=== PATIENT | female | born 1960 | race Caucasian/White ===

== ENCOUNTER 2017-10-15 00:22 | Inpatient (IN) ==
[2017-10-15] MEDS ORDERED: OXYCODONE Oral CONC 10 MG/0.5 ML ORAL.SYG SL PRN (04:56)
[2017-10-15] MEDS ORDERED: Naloxone 0.4 MG/ML INJ IVP PRN (04:56)
[2017-10-15] MEDS ORDERED: 0.9 % Sodium Chloride 1,000 ML IVC ONE (05:01)
[2017-10-15] MEDS: *HR* Heparin 5,000 UNIT/ML VIAL SQ SCH ×2 (05:16→17:54)
[2017-10-15 05:27] LABS: Hematocrit 33.8 % (35.3-44.9); Hemoglobin 11.4 g/dL (11.5-15.4); Mean Corpuscular HGB Conc 33.7 g/dL (31.6-35.5); Mean Corpuscular Hemoglobin 28.6 pg (28.0-33.3); Mean Corpuscular Volume 84.9 fL (83.0-100.0); Mean Platelet Volume 9.2 fL (9.4-12.4); Platelet Count 398 K/mcL (140-400); Red Blood Count 3.98 M/mcL (3.82-4.97); Red Cell Distribution Width 13.5 % (11.5-14.5)
[2017-10-15 05:45] LABS: BUN/Creatinine Ratio 16 (6-26); Blood Urea Nitrogen 8 mg/dL (6-20); Calcium 9.2 mg/dL (8.6-10.3); Carbon Dioxide 24 mEq/L (23-29); Chloride 106 mEq/L (98-107); Glucose 126 mg/dL (70-105); Osmolality,Calculated 284 (280-300); Potassium 3.6 mEq/L (3.5-5.1); Sodium 137 mEq/L (136-145); eGFR For African Americans > 60 (> 60); eGFR For Non-African Americans > 60 (> 60)
--- NOTE | 2017-10-15 06:20 | Internal Med History&Physical ---
Date of Encounter: 10/15/17 Time of Encounter: 03:30 Internal Medicine - H&P: HPI Chief complaint: Small Bowel Obstruction Admitted From: Home Plans for Post Hospital Care: Home History of present illness: Ms. Ardon is a 57 year old female Patient states that she had a laproscopic umbilical hernia repair on 10/03. Was recovering well, with no issues until about 2 days ago when she began vomiting and had abdominal pain 9 out of 10 at home. Her pain is localized to the lower abdomen she had never had anything quite like that before. She came to the [facility] emergency room where a CT exam was performed. It showed proximal small bowel obstruction with transition point suspected in mid to lower abdomen. Loops of small bowel 4 cm in caliber were noted as well. NG tube was placed and several 100 mL of fluid was removed. She was given 1 L of normal saline, and promethazine 25 mg and patient was feeling much better at that point. She was transferred to [facility] where she had the initial procedure for further management. She denies chest pain, fever, change in bowel movements and other pain. Currently she is doing much better and her abdominal pain has nearly resolved. She cooling pan tender but able to sleep now. She no longer has any nausea. Past Med Surg Social Fam HX - Past Medical History Medical history: COPD, GERD, hypertension, other Additional medical history: colon polyp. Hypothyroid. tobacco abuse. IBS. tobacco abuse counseling - STARTED SMOKING @24 YRS OF AGE. morbid obesity with BMI Psychiatric history: no psych history - Past Surgical History Surgical History: herniorrhaphy, other Additional surgical history: c section. left knee scope. colonoscopy. hyperplastic polyp. hysterectomy. oophorectomy. right carpal tunnel release. colonoscopy. 10/03/17 LAP UMB HERNIA REPAIR @[facility] W/DR MOLINA - Social History Smoking Status: Current every day smoker Packs per day: 0.5 Smokeless Tobacco Status: No Alcohol use: none Drug use: none - Family History Mother Hx Family Cardiac Disorders: Yes Internal Medicine - H&P: Meds Albuterol Neb [Proventil Neb] 1.25 mg IH Q4H PRN 04/13/15 [History] Albuterol Sulfate [Proventil Hfa] 2 puff IH Q6HR PRN 04/13/15 [History] Ibuprofen [Motrin] 800 mg PO TID PRN 04/13/15 [History] Levothyroxine [Synthroid] 75 mcg PO DAILY 04/13/15 [History] Loratadine [Claritin] 10 mg PO DAILY 04/13/15 [History] Omeprazole [PriLOSEC] 20 mg PO BID 04/13/15 [History] Quinapril HCl [Accupril] 40 mg PO DAILY 04/13/15 [History] Sertraline [Zoloft] 200 mg PO DAILY 04/13/15 [History] Tiotropium [Spiriva] 18 mcg IH HS 04/13/15 [History] hydrOXYzine HCl [Hydroxyzine HCl] 25 mg PO TID PRN 04/13/15 [History] Fluticasone Propionate Nasal [Flonase] 2 spr NS DAILY PRN 08/03/16 [History] Cholecalciferol (Vitamin D3) [Vitamin D] 5,000 unit PO DAILY 10/03/17 [History] 3 Allergy/AdvReac Type Severity Reaction Status Date / Time naproxen Allergy Hives Verified 09/29/17 16:29 feathers AdvReac Sneezing Verified 09/29/17 16:29 All Systems PM: A 10-system review of systems was performed and is negative for pertinent findings except as documented above in the HPI. - Constitutional Vitals: Temp Pulse Resp BP Pulse Ox 100.0 F H 79 16 122/73 94 10/15/17 04:13 10/15/17 04:13 10/15/17 04:13 10/15/17 04:13 10/15/17 04:13 General appearance: Present: A&O X 3, pleasant, no acute distress, obese - Eye Eye exam: Present: EOMI, normal appearance - Respiratory Respiratory exam: Present: CTAB. Absent: rales, respiratory distress, wheezes - Cardiovascular Cardiovascular exam: Present: RRR. Absent: diastolic murmur, systolic murmur - GI/Abdominal GI/Abdominal exam: Present: diminished bowel sounds, hypoactive bowel sounds, soft, tenderness. Absent: guarding Additional comments: Lower abdomen tenderness - Extremities Exam Extremities exam: Present: warm, radial pulses palpable and symmetrical. Absent : calf tenderness, pedal edema, tenderness - Neurological Exam Neurological exam: Present: oriented X3, no focal deficits, strengths equal and symetr throughout. Absent: facial droop, speech deficit - Skin Skin exam: Present: normal color, warm. Absent: rash Internal Med - H&P Results - Labs CBC & Chem 7: 10/15/17 05:14 10/15/17 05:14 Labs: Short CBC 10/15/17 Range/Units 05:14 WBC 9.3 (4.3-11.1) K/mcL Hgb 11.4 L (11.5-15.4) g/dL Hct 33.8 L (35.3-44.9) % Plt Count 398 (140-400) K/mcL BMP 10/15/17 05:14 Sodium 137 Potassium 3.6 Chloride 106 Carbon Dioxide 24 BUN 8 Creatinine 0.49 L Glucose 126 H Calcium 9.2 - Assessment and plan (1) Small bowel obstruction Current Visit: Yes Status: Acute Assessment and plan: Patient presented with small bowel obstruction after a hernia repair surgery on October 03. She is now much improved after NG tube placement and antinausea medication. Small bowel obstruction could be related to her recent surgery, she has never had this problem before. Continue NG tube to wall suction Continue antinausea medication as needed Advance diet as tolerated when patient no longer experiencing discomfort. Consider repeat CT to identify evidence of small bowel obstruction and transition point Surgery consult if needed (2) Abdominal pain Current Visit: Yes Status: Acute Assessment and plan: Likely secondary to small bowel obstruction, now much improved after NG tube placement. Continue to monitor. Qualifiers: Qualified Code(s): R10.30 - Lower abdominal pain, unspecified (3) Nausea and vomiting Current Visit: Yes Status: Acute Assessment and plan: Much improved after NG tube placement, likely secondary to her small bowel obstruction Continue when necessary antinausea medication. Qualifiers: Qualified Code(s): R11.2 - Nausea with vomiting, unspecified (4) Hypothyroidism Current Visit: Yes Status: Acute Assessment and plan: Patient currently nothing by mouth Continue home meds at discharge. Qualifiers: Qualified Code(s): E03.9 - Hypothyroidism, unspecified (5) GERD (gastroesophageal reflux disease) Current Visit: Yes Status: Acute Assessment and plan: Patient currently nothing by mouth Continue home meds at discharge. Qualifiers: Qualified Code(s): K21.9 - Gastro-esophageal reflux disease without esophagitis (6) Depression Current Visit: Yes Status: Acute Assessment and plan: Patient currently nothing by mouth Continue home meds at discharge. Qualifiers: Qualified Code(s): F32.9 - Major depressive disorder, single episode, unspecified (7) Hypertension Current Visit: Yes Status: Acute Assessment and plan: Patient currently nothing by mouth, stable vital signs thus far. Continue to monitor. Continue home meds at discharge. Qualifiers: Qualified Code(s): I10 - Essential (primary) hypertension (8) DVT prophylaxis Current Visit: Yes Status: Acute Assessment and plan: Heparin - Time Spent With Patient Total time spent is greater than 50% in coordination of care (as documented) at patient's floor/unit and/or counseling patient: Greater than 35 minutes
[2017-10-15] MEDS ORDERED: Fluticasone Propionate Nasal 50 MCG/SPRAY BOTTLE NS PRN (12:30)
[2017-10-15] MEDS ORDERED: Albuterol 2.5 MG/3 ML NEBULIZER IH PRN (12:32)
[2017-10-15] MEDS ORDERED: Chloraseptic Spray 177 ML BOTTLE MM PRN (12:33)
--- NOTE | 2017-10-15 12:33 | General Surgery Consult Note ---
Date of Encounter: 10/15/17 Time of Encounter: 12:29 Assessment and Plan (1) Small bowel obstruction due to adhesions Current Visit: Yes Status: Acute patient CT report sent from Geoffrey/Jose, will request disk does not appear related to recent hernia surgery conservative therapy currently npo, ivfh prn pain control gi/dvt prophylaxis ambulate ngt to LIWS prn antiemetics discussed wiht patient that will request her CT on disc so we can review her images but it doesnt appear her bowel obstruction is related to her recent hernia surgery, per report bowel loops are tethered in pelvic area and she has had previous csection and TAHBSO serial abdominal exams (2) Abdominal pain Current Visit: Yes Status: Acute prn pain control Qualifiers: Abdominal location: right lower quadrant Qualified Code(s): R10.31 - Right lower quadrant pain (3) Nausea and vomiting Current Visit: Yes Status: Acute prn antiemetics chloraseptic for ngt irritation Qualifiers: Vomiting type: unspecified Qualified Code(s): R11.2 - Nausea with vomiting , unspecified (4) Hypothyroidism Current Visit: Yes Status: Chronic iv synthroid Qualifiers: Hypothyroidism type: unspecified Qualified Code(s): E03.9 - Hypothyroidism , unspecified (5) GERD (gastroesophageal reflux disease) Current Visit: Yes Status: Chronic iv protonix Qualifiers: Qualified Code(s): K21.9 - Gastro-esophageal reflux disease without esophagitis (6) Hypertension Current Visit: Yes Status: Chronic currently normotensive, managemetn per hosptialist Qualifiers: Hypertension type: essential hypertension Qualified Code(s): I10 - Essential (primary) hypertension (7) DVT prophylaxis Current Visit: Yes Status: Chronic History of Present Illness Consult date: 10/15/17 Reason for consult: other (SBO) Requesting physician: Wallace Burgess History of present illness: Patient is a 57 yo female known to me (colonoscopy 03/31), who underwent a laparoscopic umbilical hernia repair with mesh by Dr Bermudez 10/03. She states she had a lot of abdominal pain and discomfort when she went home from surgery. Yesterday in the middle of the night she was awoken with abdominal distention, pressure and pelvic pain. The pain progressively worsened over the day. She had nausea and emesis and took zofran but it didnt help. She denies flatus and her last bm was yesterday am. No dysuria. No fevers, chills or night sweats. States has never had a bowel obstruction before. Past Med Surg Social Fam HX - Past Medical History Source: patient Medical history: arthritis (osteo), COPD, GERD, hypertension, other Additional medical history: colon polyp. Hypothyroid. tobacco abuse. IBS. tobacco abuse counseling - STARTED SMOKING @24 YRS OF AGE. morbid obesity with BMI Psychiatric history: depression - Past Surgical History Surgical History: , herniorrhaphy, ALIX/BSO, other (Lt knee arthroscopy , Rt carpal tunnel release, colonoscopy) Additional surgical history: c section. left knee scope. colonoscopy. hyperplastic polyp. hysterectomy. oophorectomy. right carpal tunnel release. colonoscopy. 10/03/17 LAP UMB HERNIA REPAIR @[facility] W/DR MOLINA - Social History Smoking Status: Current every day smoker Packs per day: 0.5 Smokeless Tobacco Status: No Alcohol use: none Drug use: none - Family History Mother Hx Family Cardiac Disorders: Yes Medications and Allergies Albuterol Neb [Proventil Neb] 1.25 mg IH Q4H PRN 04/13/15 [History] Albuterol Sulfate [Proventil Hfa] 2 puff IH Q6HR PRN 04/13/15 [History] Ibuprofen [Motrin] 800 mg PO TID PRN 04/13/15 [History] Levothyroxine [Synthroid] 75 mcg PO DAILY 04/13/15 [History] Loratadine [Claritin] 10 mg PO DAILY 04/13/15 [History] Omeprazole [PriLOSEC] 20 mg PO BID 04/13/15 [History] Quinapril HCl [Accupril] 40 mg PO DAILY 04/13/15 [History] Sertraline [Zoloft] 200 mg PO DAILY 04/13/15 [History] Tiotropium [Spiriva] 18 mcg IH HS 04/13/15 [History] hydrOXYzine HCl [Hydroxyzine HCl] 25 mg PO TID PRN 04/13/15 [History] Fluticasone Propionate Nasal [Flonase] 2 spr NS DAILY PRN 08/03/16 [History] Cholecalciferol (Vitamin D3) [Vitamin D] 5,000 unit PO DAILY 10/03/17 [History] 3 Allergy/AdvReac Type Severity Reaction Status Date / Time naproxen Allergy Hives Verified 09/29/17 16:29 feathers AdvReac Sneezing Verified 09/29/17 16:29 Review of Systems All systems PM: reviewed and no additional remarkable complaints except as stated All systems PM: The remainder of the systems were reviewed and are negative General Surgery Exam Initial Vital Signs Temp Pulse Resp BP Pulse Ox 100.0 F H 79 16 122/73 94 10/15/17 04:13 10/15/17 04:13 10/15/17 04:13 10/15/17 04:13 10/15/17 04:13 - General physical appearance well developed, well nourished, no distress, obese - Eyes PERRL, normal ocular movement - ENT normal mucosa, normocephalic - Neck trachea midline - Respiratory normal expansion, clear to auscultation - Abdomen Abdomen general surgery: Present: bowel sounds present, soft, non tender. Absent: distended, guarding, rebound Abdominal Tenderness: Present: RLQ - Incision Incision: Present: clean and dry, intact (ecchymosis lower abdominal wall) - Integumentary Integumentary general surgery: Present: warm and dry - Neurologic Present: CN 2-12 grossly intact - Musculoskeletal Present: normal posture - Psychiatric Psychiatric general surgery: Present: A&Ox3, speech is normal Exam Initial Vital Signs Temp Pulse Resp BP Pulse Ox 100.0 F H 79 16 122/73 94 10/15/17 04:13 10/15/17 04:13 10/15/17 04:13 10/15/17 04:13 10/15/17 04:13 Results - Labs 10/15/17 05:14 10/15/17 05:14 Short CBC 10/15/17 Range/Units 05:14 WBC 9.3 (4.3-11.1) K/mcL Hgb 11.4 L (11.5-15.4) g/dL Hct 33.8 L (35.3-44.9) % Plt Count 398 (140-400) K/mcL BMP 10/15/17 Range/Units 05:14 Sodium 137 (136-145) mEq/L Potassium 3.6 (3.5-5.1) mEq/L Chloride 106 (98-107) mEq/L Carbon Dioxide 24 (23-29) mEq/L BUN 8 (6-20) mg/dL Creatinine 0.49 L (0.60-1.20) mg/dL Glucose 126 H (70-105) mg/dL Calcium 9.2 (8.6-10.3) mg/dL Vital Signs Temp Pulse Resp BP Pulse Ox 10/15/17 11:04 98.1 F 73 15 113/63 92 10/15/17 08:30 92 10/15/17 07:44 97.9 F 81 14 130/83 93 10/15/17 04:13 100.0 F H 79 16 122/73 94 Intake and Output 10/14/17 10/15/17 10/15/17 23:59 07:59 15:59 Intake Total 1000 / 1000 0 / 0 Output Total 300 / 300 200 / 200 Balance 700 / 700 -200 / -200 Intake: IV Fluids 1000 / 1000 0.9 % Sodium Chloride 1,000 ML 1000 / 1000 @ 999 mls/hr IVC .Q1H1M ONE Rx# :[id number] Oral 0 / 0 0 / 0 Output: Urine 0 / 0 0 / 0 Gastric Drainage 300 / 300 200 / 200 Other: Meal NPO Breakfast # Voids 1 Weight 134.263 kg Blood Glucose* 134 108 Patient Weight 10/15/17 23:59 Weight 134.263 kg - Imaging CT scan - abdomen: report reviewed CT scan - pelvis: report reviewed Consult Discharge Plan - Plan Referrals: Neva Johnson, RESEARCH LAB ASSISTANT [Primary Care Provider] -
[2017-10-15] MEDS ORDERED: Ondansetron 4 MG/2 ML VIAL IVP PRN (12:42)
--- NOTE | 2017-10-15 15:01 | Event Note ---
Date of Encounter: 10/15/17 Time of Encounter: 14:56 Pt admitted earlier today with acute SBO. At this time she is NPO with NG in place. Appreciate surgical help. Has caffeine withdrawal headache.
[2017-10-15] MEDS: Tiotropium 18 MCG inhalation IH SCH ×2 (15:31→20:24)
[2017-10-15] MEDS: Pantoprazole 40 MG VIAL IVP SCH (15:51)
[2017-10-15] MEDS ORDERED: Acetaminophen IV 1,000 MG/100 ML INFUS..BTL IVPB ONE (15:54)
[2017-10-15] MEDS: 0.9 % Sodium Chloride 1,000 ML IVC SCH (23:51)
[2017-10-16 04:08] LABS: Hematocrit 35.5 % (35.3-44.9); Hemoglobin 11.8 g/dL (11.5-15.4); Mean Corpuscular HGB Conc 33.2 g/dL (31.6-35.5); Mean Corpuscular Hemoglobin 28.6 pg (28.0-33.3); Mean Platelet Volume 9.2 fL (9.4-12.4); Platelet Count 406 K/mcL (140-400); Red Blood Count 4.13 M/mcL (3.82-4.97); Red Cell Distribution Width 13.5 % (11.5-14.5)
[2017-10-16 04:27] LABS: BUN/Creatinine Ratio 23 (6-26); Blood Urea Nitrogen 11 mg/dL (6-20); Calcium 9.2 mg/dL (8.6-10.3); Carbon Dioxide 22 mEq/L (23-29); Chloride 107 mEq/L (98-107); Glucose 85 mg/dL (70-105); Osmolality,Calculated 285 (280-300); Potassium 3.5 mEq/L (3.5-5.1); Sodium 138 mEq/L (136-145); eGFR For African Americans > 60 (> 60); eGFR For Non-African Americans > 60 (> 60)
[2017-10-16] MEDS: *HR* Heparin 5,000 UNIT/ML VIAL SQ SCH ×2 (05:52→19:13)
[2017-10-16] MEDS: Levothyroxine Sodium 100 MCG VIAL IVP SCH (05:52)
[2017-10-16] MEDS: 0.9 % Sodium Chloride 1,000 ML IVC SCH ×2 (09:49→19:13)
[2017-10-16] MEDS: Pantoprazole 40 MG VIAL IVP SCH (09:49)
--- NOTE | 2017-10-16 10:24 | General Surgery Progress Note ---
<Kenzie Connor Elvia - Last Filed: 10/16/17 10:42> Date of Encounter: 10/16/17 Time of Encounter: 10:24 - Assessment and Plan (1) Small bowel obstruction Current Visit: Yes Status: Acute Transferred from [facility] 10/15/2017. Pt states she was "doing really good after my hernia surgery until Monday when I started throwing up yellow bile." She reports a BM on Monday that was normal. CT report from [facility] noted proximal small bowel obstruction with loops of bowel measuring up to 4 cm in caliber and a transition point suspected in the mid to lower abdomen. No evidence of perforation. Appendix is grossly unremarkable. Suspect possible small bowel obstruction would be more likely related to history of and total abdominal hysterectomy rather than recent umbilical hernia repair. She reports she is feeling much improved. She states some abdominal soreness, but denies n/v. She passed flatus x1. Denies BM. Plan: AAS to check for contrast in the colon. NG to gravity, may return to sux if n/v serial abdominal exams repeat am labs supportive care and discomfort management while awaiting return of bowel function further recommendations pending (2) GERD (gastroesophageal reflux disease) Current Visit: Yes Status: Chronic Continue G.I. prophylaxis Qualifiers: Qualified Code(s): K21.9 - Gastro-esophageal reflux disease without esophagitis (3) Hypertension Current Visit: Yes Status: Chronic Management per primary team. Currently well controlled Qualifiers: Hypertension type: essential hypertension Qualified Code(s): I10 - Essential (primary) hypertension (4) DVT prophylaxis Current Visit: Yes Status: Chronic DVT prophylaxis per primary team. Ambulate at least TID. EP CDs while in bed. Sub Q heparin. Objective Vital Signs - Last 8 Hours Temp Pulse Resp BP Pulse Ox 10/16/17 07:32 97.6 F 69 16 110/71 94 10/16/17 03:37 97.8 F 68 16 164/80 91 Intake and Output 10/15/17 10/16/17 10/16/17 23:59 07:59 15:59 Intake Total 100 / 100 1000 / 1000 Output Total 0 / 0 1000 / 1000 Balance 100 / 100 -1000 / -1000 1000 / 1000 Intake: IV Fluids 100 / 100 1000 / 1000 0.9 % Sodium Chloride 1,000 ML 1000 / 1000 @ 125 mls/hr IVC .Q8H KARLIE Rx#: [id number] Ofirmev 1,000 mg/100 ml 1,000 100 / 100 mg In 100 ml @ 400 mls/hr IVPB ONCE ONE Rx#:[id number] Oral 0 / 0 Output: Urine 0 / 0 400 / 400 Gastric Drainage 600 / 600 Other: Weight 133.3 kg Blood Glucose* 93 84 Patient Weight 10/16/17 23:59 Weight 133.3 kg - Labs 10/16/17 03:26 10/16/17 03:26 Diabetes panel 10/16/17 Range/Units 03:26 Sodium 138 (136-145) mEq/L Potassium 3.5 (3.5-5.1) mEq/L Chloride 107 (98-107) mEq/L Carbon Dioxide 22 L (23-29) mEq/L BUN 11 (6-20) mg/dL Creatinine 0.48 L (0.60-1.20) mg/dL Glucose 85 (70-105) mg/dL Calcium 9.2 (8.6-10.3) mg/dL Calcium panel 10/16/17 Range/Units 03:26 Calcium 9.2 (8.6-10.3) mg/dL Pituitary panel 10/16/17 Range/Units 03:26 Sodium 138 (136-145) mEq/L Potassium 3.5 (3.5-5.1) mEq/L Chloride 107 (98-107) mEq/L Carbon Dioxide 22 L (23-29) mEq/L BUN 11 (6-20) mg/dL Creatinine 0.48 L (0.60-1.20) mg/dL Glucose 85 (70-105) mg/dL Calcium 9.2 (8.6-10.3) mg/dL Adrenal panel 10/16/17 Range/Units 03:26 Sodium 138 (136-145) mEq/L Potassium 3.5 (3.5-5.1) mEq/L Chloride 107 (98-107) mEq/L Carbon Dioxide 22 L (23-29) mEq/L BUN 11 (6-20) mg/dL Creatinine 0.48 L (0.60-1.20) mg/dL Glucose 85 (70-105) mg/dL Calcium 9.2 (8.6-10.3) mg/dL Consult Discharge Plan - Plan Referrals: Neva Johnson, PROCESS CONTROL BOARD OPERATOR [Primary Care Provider] - <Juan Henry Jocelyn - Last Filed: 10/17/17 07:28> Date of Encounter: 10/16/17 Objective Vital Signs - Last 8 Hours Temp Pulse Resp BP Pulse Ox 10/17/17 06:46 97.8 F 73 14 132/72 95 10/17/17 04:24 98.3 F 71 16 98/61 94 Intake and Output 10/16/17 10/16/17 10/17/17 15:59 23:59 07:59 Intake Total 1060 / 1060 60 / 60 10 10 Output Total 300 / 300 400 / 400 Balance 760 / 760 -340 / -340 10 10 Intake: IV Fluids 1000 / 1000 0.9 % Sodium Chloride 1,000 ML 1000 / 1000 @ 125 mls/hr IVC .Q8H KARLIE Rx#: [id number] Oral 60 / 60 60 / 60 10 Output: Urine 0 / 0 400 / 400 Gastric Drainage 300 / 300 Other: Meal NPO npo # Voids 1 Weight 131.9 kg Blood Glucose* 68 82 Patient Weight 10/17/17 23:59 Weight 131.9 kg - Labs 10/17/17 05:49 10/17/17 05:49 Diabetes panel 10/17/17 Range/Units 05:49 Sodium 140 (136-145) mEq/L Potassium 3.8 (3.5-5.1) mEq/L Chloride 107 (98-107) mEq/L Carbon Dioxide 21 L (23-29) mEq/L BUN 14 (6-20) mg/dL Creatinine 0.42 L (0.60-1.20) mg/dL Glucose 72 (70-105) mg/dL Calcium 9.2 (8.6-10.3) mg/dL Calcium panel 10/17/17 Range/Units 05:49 Calcium 9.2 (8.6-10.3) mg/dL Pituitary panel 10/17/17 Range/Units 05:49 Sodium 140 (136-145) mEq/L Potassium 3.8 (3.5-5.1) mEq/L Chloride 107 (98-107) mEq/L Carbon Dioxide 21 L (23-29) mEq/L BUN 14 (6-20) mg/dL Creatinine 0.42 L (0.60-1.20) mg/dL Glucose 72 (70-105) mg/dL Calcium 9.2 (8.6-10.3) mg/dL Adrenal panel 10/17/17 Range/Units 05:49 Sodium 140 (136-145) mEq/L Potassium 3.8 (3.5-5.1) mEq/L Chloride 107 (98-107) mEq/L Carbon Dioxide 21 L (23-29) mEq/L BUN 14 (6-20) mg/dL Creatinine 0.42 L (0.60-1.20) mg/dL Glucose 72 (70-105) mg/dL Calcium 9.2 (8.6-10.3) mg/dL - Attending Attestation I have personally performed a face to face evaluation on this patient. I have reviewed and agree with the care plan. History and Exam by me shows: I personally reviewed the assessment and evaluation and agree with the above plan. Patient has had flatus and feels better. Less distention. No nausea or vomiting. NG tube is clamped and patient is tolerating clears. If she continues to tolerate clears for today will consider removal of NG tube tomorrow.
--- NOTE | 2017-10-16 17:53 | Internal Med Progress Note ---
Date of Encounter: 10/16/17 Time of Encounter: 16:00 - Assessment and plan (1) Postoperative ileus Current Visit: Yes Status: Acute Assessment and plan: Currently with NG. Plan per surgery. Passing some gas at this time. (2) Hypertension Current Visit: Yes Status: Chronic Assessment and plan: Controlled at this time. Qualifiers: Hypertension type: essential hypertension Qualified Code(s): I10 - Essential (primary) hypertension (3) Hypothyroidism Current Visit: Yes Status: Chronic Assessment and plan: Continue IV Synthroid. Qualifiers: Hypothyroidism type: acquired Qualified Code(s): E03.9 - Hypothyroidism, unspecified (4) GERD (gastroesophageal reflux disease) Current Visit: Yes Status: Chronic Assessment and plan: Chronic issues Qualifiers: Esophagitis presence: without esophagitis Qualified Code(s): K21.9 - Gastro -esophageal reflux disease without esophagitis (5) Morbid obesity with BMI of 50.0-59.9, adult Current Visit: Yes Status: Chronic (6) Tobacco abuse Current Visit: Yes Status: Chronic Assessment and plan: Cessation counselling. - Time Spent With Patient Total time spent is greater than 50% in coordination of care (as documented) at patient's floor/unit and/or counseling patient: - Subjective Interval history: Ms Ardon is currently admitted for acute post op ileus. She remains moderate to high risk due to potential for worsening clinical status. Ms Ardon feels OK. She is passing a little gas. No fever or chills. Tolerating NG. Pain not an issue right now. - Constitutional Vitals: Temp Pulse Resp BP Pulse Ox 97.5 F L 84 16 125/74 95 10/16/17 15:36 10/16/17 15:36 10/16/17 15:36 10/16/17 15:36 10/16/17 15:36 General appearance: Present: A&O X 3, pleasant - Head Head exam: Present: normocephalic - Eye Eye exam: Present: EOMI, conjuntiva pink - ENT ENT exam: Present: mucous membranes moist - Respiratory Respiratory exam: Present: CTAB. Absent: rhonchi, wheezes - Cardiovascular Cardiovascular exam: Present: RRR. Absent: tachycardia - GI/Abdominal GI/Abdominal exam: Present: distended, soft - Extremities Exam Extremities exam: Present: warm. Absent: tenderness - Neurological Exam Neurological exam: Present: alert, oriented X3 - Skin Skin exam: Present: dry, warm Internal Medicine: Result - Labs CBC & Chem 7: 10/16/17 03:26 10/16/17 03:26 Labs: Short CBC 10/16/17 Range/Units 03:26 WBC 7.4 (4.3-11.1) K/mcL Hgb 11.8 (11.5-15.4) g/dL Hct 35.5 (35.3-44.9) % Plt Count 406 H (140-400) K/mcL BMP 10/16/17 03:26 Sodium 138 Potassium 3.5 Chloride 107 Carbon Dioxide 22 L BUN 11 Creatinine 0.48 L Glucose 85 Calcium 9.2 - Impressions Impressions Abdomen X-Ray 10/16/17 10:54 IMPRESSION: Probable postoperative ileus. D/ /16/2017 13:16:44 Carl Shepherd MD / moon Interpreting Provider: Carl Shepherd MD Consult Discharge Plan - Plan Referrals: Neva Johnson, DISPATCHER TOW TRUCK [Primary Care Provider] -
[2017-10-16] MEDS ORDERED: Nitroglycerin 1 INCH/GM PACKET TP SCH (18:00)
[2017-10-16] MEDS: Tiotropium 18 MCG inhalation IH SCH (20:35)
[2017-10-17] MEDS: Levothyroxine Sodium 100 MCG VIAL IVP SCH (05:37)
[2017-10-17] MEDS: *HR* Heparin 5,000 UNIT/ML VIAL SQ SCH ×2 (05:38→18:00)
[2017-10-17 06:04] LABS: Hematocrit 34.2 % (35.3-44.9); Hemoglobin 11.4 g/dL (11.5-15.4); Mean Corpuscular HGB Conc 33.3 g/dL (31.6-35.5); Platelet Count 364 K/mcL (140-400); Red Blood Count 4.07 M/mcL (3.82-4.97); Red Cell Distribution Width 13.6 % (11.5-14.5)
[2017-10-17 06:23] LABS: BUN/Creatinine Ratio 33 (6-26); Blood Urea Nitrogen 14 mg/dL (6-20); Calcium 9.2 mg/dL (8.6-10.3); Carbon Dioxide 21 mEq/L (23-29); Chloride 107 mEq/L (98-107); Glucose 72 mg/dL (70-105); Magnesium 1.9 mg/dL (1.6-2.6); Osmolality,Calculated 289 (280-300); Potassium 3.8 mEq/L (3.5-5.1); Sodium 140 mEq/L (136-145); eGFR For African Americans > 60 (> 60); eGFR For Non-African Americans > 60 (> 60)
[2017-10-17] MEDS: Pantoprazole 40 MG VIAL IVP SCH (08:49)
[2017-10-17] MEDS: 0.9 % Sodium Chloride 1,000 ML IVC SCH (08:49)
--- NOTE | 2017-10-17 09:30 | General Surgery Progress Note ---
Date of Encounter: 10/17/17 Time of Encounter: 09:28 - Assessment and Plan (1) Small bowel obstruction Current Visit: Yes Status: Acute Transferred from [facility] 10/15/2017. Pt states she was "doing really good after my hernia surgery until Monday when I started throwing up yellow bile." She reports a BM on Monday that was normal. CT report from [facility] noted proximal small bowel obstruction with loops of bowel measuring up to 4 cm in caliber and a transition point suspected in the mid to lower abdomen. No evidence of perforation. Appendix is grossly unremarkable. Suspect possible small bowel obstruction would be more likely related to history of and total abdominal hysterectomy rather than recent umbilical hernia repair. Acute abdominal series on 10/16/2017 noted likely postoperative ileus. Her NG was clamped and she was tried on clear liquids. She states she feels much better today, has passed flatus, and denies abdominal discomfort. Plan: DC NG full liquid diet for lunch. If she tolerates this may advance as tolerated recommend MiraLAX BID until she is having daily bowel movements that are mashed potatoes consistency. She may then decrease MiraLAX to daily until she is having daily bowel movements. She may then decrease to PRN. Okay to discharge from a surgical perspective if she tolerates her full liquids at lunch. (2) GERD (gastroesophageal reflux disease) Current Visit: Yes Status: Chronic Continue G.I. prophylaxis Qualifiers: Esophagitis presence: without esophagitis Qualified Code(s): K21.9 - Gastro -esophageal reflux disease without esophagitis (3) Hypertension Current Visit: Yes Status: Chronic Management per primary team. Currently well controlled Qualifiers: Hypertension type: essential hypertension Qualified Code(s): I10 - Essential (primary) hypertension (4) DVT prophylaxis Current Visit: Yes Status: Chronic DVT prophylaxis per primary team. Ambulate at least TID. EP CDs while in bed. Sub Q heparin. Subjective Patient reports: no new complaints, feels better, voiding w/o difficulty, flatus , no bowel movement, afebrile Objective Vital Signs - Last 8 Hours Temp Pulse Resp BP Pulse Ox 10/17/17 06:46 97.8 F 73 14 132/72 95 10/17/17 04:24 98.3 F 71 16 98/61 94 Intake and Output 10/16/17 10/17/17 10/17/17 23:59 07:59 15:59 Intake Total 60 / 60 1000 / 1000 Output Total 400 / 400 Balance -340 / -340 1000 / 1000 Intake: IV Fluids 1000 / 1000 0.9 % Sodium Chloride 1,000 ML 1000 / 1000 @ 75 mls/hr IVC .[id number] KARLIE Rx #:[id number] Oral 60 / 60 Output: Urine 400 / 400 Other: Meal npo # Voids 1 Weight 131.9 kg Blood Glucose* 82 Patient Weight 10/17/17 23:59 Weight 131.9 kg - General physical appearance no distress, other - Eyes normal ocular movement - ENT atraumatic, normocephalic - Neck Neck exam: trachea midline - Respiratory normal expansion, normal respiratory effort, clear to auscultation - Cardiovascular Cardiovascular exam: Present: distant heart sounds - Abdomen Abdomen: Present: bowel sounds present, soft, tender - Incision Incision: Present: clean and dry, intact - Integumentary other (ecchymosis to abdomen noted) - Neurologic normal coordination, normal sensation - Musculoskeletal normal posture - Psychiatric oriented to time, oriented to person, oriented to place, memory intact - Labs 10/17/17 05:49 10/17/17 05:49 Diabetes panel 10/17/17 Range/Units 05:49 Sodium 140 (136-145) mEq/L Potassium 3.8 (3.5-5.1) mEq/L Chloride 107 (98-107) mEq/L Carbon Dioxide 21 L (23-29) mEq/L BUN 14 (6-20) mg/dL Creatinine 0.42 L (0.60-1.20) mg/dL Glucose 72 (70-105) mg/dL Calcium 9.2 (8.6-10.3) mg/dL Calcium panel 10/17/17 Range/Units 05:49 Calcium 9.2 (8.6-10.3) mg/dL Pituitary panel 10/17/17 Range/Units 05:49 Sodium 140 (136-145) mEq/L Potassium 3.8 (3.5-5.1) mEq/L Chloride 107 (98-107) mEq/L Carbon Dioxide 21 L (23-29) mEq/L BUN 14 (6-20) mg/dL Creatinine 0.42 L (0.60-1.20) mg/dL Glucose 72 (70-105) mg/dL Calcium 9.2 (8.6-10.3) mg/dL Adrenal panel 10/17/17 Range/Units 05:49 Sodium 140 (136-145) mEq/L Potassium 3.8 (3.5-5.1) mEq/L Chloride 107 (98-107) mEq/L Carbon Dioxide 21 L (23-29) mEq/L BUN 14 (6-20) mg/dL Creatinine 0.42 L (0.60-1.20) mg/dL Glucose 72 (70-105) mg/dL Calcium 9.2 (8.6-10.3) mg/dL Consult Discharge Plan - Plan Additional Instructions: Ensure that you are drinking plenty of fluids daily and eating a high-fiber diet. Take MiraLAX as directed Referrals: Neva Johnson CNP [Primary Care Provider] - Kenzie Connor CNP [Advanced Practice Nurse] - 10/27/17 9:15 am Prescriptions: Polyethylene Glycol 3350 [MiraLAX] 17 gm PO BID 30 Days #60 [email or web address]
[2017-10-17 18:32] VITALS: BP 132/86
--- NOTE | 2017-10-17 19:18 | Discharge Summary ---
Date of Encounter: 10/17/17 Time of Encounter: 19:16 - Discharge Diagnosis (1) Postoperative ileus Priority: Primary Status: Acute (2) GERD (gastroesophageal reflux disease) Priority: Secondary Status: Chronic Qualifiers: Esophagitis presence: without esophagitis Qualified Code(s): K21.9 - Gastro -esophageal reflux disease without esophagitis (3) Hypertension Priority: Secondary Status: Chronic Qualifiers: Hypertension type: essential hypertension Qualified Code(s): I10 - Essential (primary) hypertension (4) Hypothyroidism Priority: Secondary Status: Chronic Qualifiers: Hypothyroidism type: acquired Qualified Code(s): E03.9 - Hypothyroidism, unspecified (5) COPD (chronic obstructive pulmonary disease) Status: Chronic Qualifiers: COPD type: unspecified COPD Qualified Code(s): J44.9 - Chronic obstructive pulmonary disease, unspecified Hospital course: Ms. Ardon is a 57 year old female. Discharge discussed with: patient, family - Time Spent with Patient Total time spent providing and/or coordinating discharge services: Greater than 30 minutes (35 minutes) - Discharge Medications Home Medications: Albuterol Neb [Proventil Neb] 1.25 mg IH Q4H PRN 04/13/15 [History] Albuterol Sulfate [Proventil Hfa] 2 puff IH Q6HR PRN 04/13/15 [History] Ibuprofen [Motrin] 800 mg PO TID PRN 04/13/15 [History] Levothyroxine [Synthroid] 75 mcg PO DAILY 04/13/15 [History] Omeprazole [PriLOSEC] 20 mg PO BID 04/13/15 [History] Quinapril HCl [Accupril] 40 mg PO DAILY 04/13/15 [History] Sertraline [Zoloft] 200 mg PO DAILY 04/13/15 [History] Tiotropium [Spiriva] 18 mcg IH HS 04/13/15 [History] hydrOXYzine HCl [Hydroxyzine HCl] 25 mg PO TID PRN 04/13/15 [History] Fluticasone Propionate Nasal [Flonase] 2 spr NS DAILY PRN 08/03/16 [History] Cholecalciferol (Vitamin D3) [Vitamin D3] 5,000 unit PO DAILY 10/03/17 [History] Budesonide/Formoterol 160/4.5 [Symbicort 160/4.5] 2 puff IH BIDR 07/02/18 [ History] Allergies/Adverse Reactions: 3 Allergy/AdvReac Type Severity Reaction Status Date / Time naproxen Allergy Hives Verified 10/15/17 14:13 feathers AdvReac Sneezing Verified 10/15/17 14:13 Date of admission: 10/16/17 17:58 Primary care physician: Neva Johnson CNP Consults: 10/15/17 12:30 Consult to Surgery [CONS] Routine Consulting Provider: [facility] Reason for Consult: SBO Call Completed: Yes Discharging clinician: Manuel Guerrero Anticipated date of discharge: 10/17/17 - Constitutional Vitals: Temp Pulse Resp BP Pulse Ox 98.4 F 88 16 132/86 95 10/17/17 18:30 10/17/17 18:30 10/17/17 18:30 10/17/17 18:30 10/17/17 18:30 General appearance: Present: A&O X 3, pleasant, no acute distress - Respiratory Respiratory exam: Present: CTAB. Absent: accessory muscle use, rales, rhonchi, wheezes - Cardiovascular Cardiovascular exam: Present: RRR, +S1, +S2. Absent: diastolic murmur, gallop, rubs, systolic murmur - GI/Abdominal GI/Abdominal exam: Present: normal bowel sounds, soft, no peritoneal signs. Absent: distended, tenderness - Patient Status Disposition: Home, Self-Care Condition: Good - Discharge Instructions Follow Up With: Neva Johnson CNP [Primary Care Provider] - Kenzie Connor CNP [Advanced Practice Nurse] - 10/27/17 9:15 am Additional Instructions: Ensure that you are drinking plenty of fluids daily and eating a high-fiber diet. Take MiraLAX as directed - Diet and Activity Activity: resume usual activities as tolerated Diet: low fat, low cholesterol - VTE Deep Vein Thrombosis/Pulmonary Embolism Present on Admission: No
[2017-10-17] MEDS: Tiotropium 18 MCG inhalation IH SCH (20:03)
== END 2017-10-17 20:37 | disposition home or self-care (01) | DRG 394 ==
LOC: 3ANU → SUATTDRO 03:05
PROVIDERS: ADMIT Family Medicine; ATTEND Internal Medicine